=== PATIENT | female | born 1980 | race Caucasian/White ===

== ENCOUNTER 2016-08-13 05:11 | Inpatient (IN) | payer BC ==
[2016-08-13] MEDS ORDERED: Lidocaine 1% 50 ML MDV ONE (05:32)
[2016-08-13] MEDS ORDERED: Naloxone 0.4 MG/ML SDV ONE (05:32)
[2016-08-13] MEDS ORDERED: Oxytocin 10 Units/1 ML SDV ONE (05:32)
[2016-08-13] MEDS ORDERED: fentaNYL 100 MCG/2 ML SDV IVPUSH PRN (05:40)
[2016-08-13] MEDS ORDERED: Acetaminophen 325 MG Tab PO PRN (05:40)
[2016-08-13] MEDS ORDERED: Sodium Chloride 0.9% 10 ML Syringe FLUSH PRN (05:40)
--- NOTE | 2016-08-13 05:50 | PCM.LDHP ---
L&D History of Present Illness - General Date of Service: 08/13/16 (labor) Admit Problem/Dx: Patient Status Order with Admit Dx/Problem 08/13/16 05:40 Patient Status [ADT] Routine Admission Diagnosis/Problem Admission Diagnosis/Problem Source of Information: Patient History Limitations: Reports: No limitations - History of Present Illness Introduction:: 35 year old G 5 P2 who is 40 weeks gestation today presented inactive active at 0530. Contractions started at 0130 this morning. Have gotten stronger over the night. No leaking of fluid. adequate care. Healthy lady CE 6-7/100/0 LABs: ABO O pos HIV neg GBS pos HGB 14.2 and PLT 175 Timing/Duration: Reports: minutes: (2-3 minutes) Location, : Reports: Lower back Quality: Reports: Ache, Pressure Severity: moderate Improves with: Reports: Movement, Other (pressure on her low back) Worsens with: Reports: Other (being on her back) - Related Data Allergies/Adverse Reactions: Allergies Allergy/AdvReac Type Severity Reaction Status Date / Time Sulfa (Sulfonamide Allergy Rash Verified 01/14/14 10:21 Antibiotics) Home Medications: Home Meds [id number]/Iron Fumarate/FA/DSS [ 19 Tablet] 1 each PO ASDIRECTED 01/14/14 [ History] Past Medical History : 5 Para: 2 LMP (Approximate): (COURTNEY 08/13/16) Other OB/BYN History: miscarriage Social & Family History - Tobacco Use Smoking Status *Q: Never Smoker Second Hand Smoke Exposure: No - Alcohol Use Days Per Week of Alcohol Use: 0 - Recreational Drug Use Recreational Drug Use: No H&P Review of Systems - Review of Systems: Review Of Systems: See Below General: Reports: no symptoms HEENT: Reports: no symptoms Pulmonary: Reports: No Symptoms Cardiovascular: Reports: no symptoms Gastrointestinal: Reports: No symptoms Genitourinary: Reports: no symptoms Musculoskeletal: Reports: no symptoms Skin: Reports: no symptoms Psychiatric: Reports: no symptoms Neurological: Reports: No Symptoms Hematologic/Lymphatic: Reports: no symptoms Immunologic: Reports: no symptoms L&D Exam - Exam Exam: See Below - Vital Signs Weight: 188 lb - OB Specific Contraction Intensity: Strong movement: active heart tones: present heart tones per min: 140 Presentation: Vertex Estimated Weight: 8 pounds - Collins Score Collins Score Cervix Position: Midposition Collins Score Consistency: Soft Collins Score Effacement: >80% Collins Score Dilation: > 5 cm Collins Score 's Station: -1 ,0 Collins Score Total: 11 - Exam General: alert, oriented HEENT: PERRLA, Conjunctiva clear, Hearing intact, Mucosa moist & pink Neck: supple, trachea midline Lungs: Clear to auscultation Cardiovascular: regular rate, regular rhythm Abdomen: normal bowel sounds, soft Rectal Exam: Normal exam Genitourinary: Normal external exam Back Exam: normal inspection, full range of motion Extremities: normal inspection Skin: warm, dry, intact Neurological: cranial nerves intact, reflexes equal bilateral Psychiatric: alert, normal affect, normal mood - Patient Data Lab Results last 24 hrs: Laboratory Results - last 24 hr 08/13/16 Range/Units 05:38 WBC 9.8 (4.5-11.0) K/uL RBC 4.41 (3.30-5.50) M/uL Hgb 14.2 (12.0-15.0) g/dL Hct 40.0 (36.0-48.0) % MCV 91 (80-98) fL MCH 32 H (27-31) pg MCHC 36 (32-36) % Plt Count 175 (150-400) K/uL Neut % (Auto) 54 (36-66) % Lymph % (Auto) 37 (24-44) % [place] % (Auto) 9 H (2-6) % Eos % (Auto) 1 L (2-4) % Baso % (Auto) 1 (0-1) % Result Diagrams: 08/13/16 05:38 - Problem List (1) SNOMED Code(s): 57013015 ICD Code: Z33.1 - STATE, INCIDENTAL Status: Acute Current Visit : Yes Qualifiers: Weeks of gestation: 40 weeks Qualified Code(s): Z3A.40 - 40 weeks gestation of (2) Active labor SNOMED Code(s): 90996468 ICD Code: [id number] - Status: Acute Current Visit: Yes Problem List Initiated/Reviewed/Updated: Yes Orders Last 24hrs: Active Orders 24 hr Category Date Time Status Patient Status [ADT] Routine ADT 08/13/16 05:40 Ordered Communication Order [RC] ASDIRECTED Care 08/13/16 05:40 Ordered Heart Tones [RC] PER UNIT ROUTINE Care 08/13/16 05:40 Ordered May Shower [RC] ASDIRECTED Care 08/13/16 05:40 Ordered Notify Provider Vital Signs [RC] PRN Care 08/13/16 05:40 Ordered Notify Provider [RC] PRN Care 08/13/16 05:40 Ordered Up ad Jolene [RC] ASDIRECTED Care 08/13/16 05:40 Ordered Vital Signs [RC] PER UNIT ROUTINE Care 08/13/16 05:40 Ordered DRUG SCREEN, URINE [URCHEM] Urgent Lab 08/13/16 05:38 Ordered UA W/MICROSCOPIC [URIN] Routine Lab 08/13/16 05:38 Ordered Acetaminophen [Tylenol] Med 08/13/16 05:40 Ordered 650 mg PO Q4H PRN Oxytocin/Normal Saline [Pitocin in NS 20 Units/1,000 ML Med 08/13/16 05:45 Ordered ] 1,000 ml IV TITRATE Sodium Chloride 0.9% [Saline Flush] Med 08/13/16 05:40 Ordered 10 ml FLUSH ASDIRECTED PRN fentaNYL [Sublimaze] Med 08/13/16 05:40 Ordered 100 mcg IVPUSH Q1H PRN Saline Lock Insert [OM.PC] Routine Oth 08/13/16 05:40 Ordered Resuscitation Status Routine Resus Stat 08/13/16 05:40 Ordered Medication Orders Acetaminophen (Tylenol) 650 mg PO Q4H PRN PRN Reason: Pain (Mild 1-3) and fever Fentanyl (Sublimaze) 100 mcg IVPUSH Q1H PRN PRN Reason: Pain (moderate 4-6) Sodium Chloride (Saline Flush) 10 ml FLUSH ASDIRECTED PRN PRN Reason: Keep Vein Open Assessment/Plan Comment:: 35 year old in active labor at 40 weeks gestation. GBS negative Plan for vaginal delivery pain medication per patient request
[2016-08-13] MEDS ORDERED: Benzocaine 20% Top Spray 56 GM Bottle TOP PRN (06:56)
[2016-08-13] MEDS ORDERED: Witch Hazel Medicated Pads 100/Jar TOP PRN (06:56)
[2016-08-13] MEDS ORDERED: Acetaminophen 325 MG Tab, 50 Tab Bulk Bottle PO PRN (06:56)
[2016-08-13] MEDS ORDERED: Ibuprofen 600 MG Tab PO PRN (06:56)
[2016-08-13] MEDS ORDERED: Lanolin 100% Cream 40 GM Tube TOP PRN (06:56)
[2016-08-13] MEDS ORDERED: Ibuprofen 200 MG Tab, 24 Tab Bulk Bottle PO PRN (06:56)
--- NOTE | 2016-08-13 07:12 | PCM.DEL ---
L & D Note - General Info Date of Service: 08/13/16 () Mother's Due Date: 08/13/16 - Delivery Note Labor: spontaneous Delivery Outcome: Livebirth Delivery Method: Spontaneous Vaginal Delivery Delivery Mode: Spontaneous Presentation: Vertex Nuchal cord: none Anesthesia Type: None Anesthetic: lidocaine (xylocaine) 1% plain Local anesthetic volume: 3cc Amniotic Fluid Description: Clear Episiotomy Type: None Laceration: 1st degree, perineal Suture type: vicryl Suture size: 3-0 Placenta: intact, spontaneous Cord: 3 vessels Estimated blood loss: 400 Resuscitation needed: No : stimulated, warmed, blanket used Provider: Lela Doherty Score 1 min: 9 Score 5 min: 9 Score 10 min: 9 Second Stage Interventions: Reports: Encouragement Given, Pushing Effectively, Pushing, McRobert's Position Delivery Comments (Free Text/Narrative):: This 35 year old G5 now P3 delivered a viable male infant over an intact perineum at 0620. Giulia presented at 0530 in active labor she progressed and was complete with a bulging bag at o6oo. AROM at 0600 for large amount clear fluid. She pushed effectively and ant 0620 babe was born. He was placed on mother's abdomen where he was dried and stimulated. He cried spontaneously. 9,9, 9. Three vessel cord. The placenta was expressed spontaneously intact. She had a small midline perineal tear which required 3 stitches to close. Intact cervix, vagina, rectum. EBL 400cc Mother and baby to post and nursery in stable condition Weight 9-15.4 first stage [id number] Second stage 3963-2476 Third stage [id number] - General Info Date of Service: 08/13/16 Admission Dx/Problem (Free Text): Patient Status Order with Admit Dx/Problem 08/13/16 05:40 Patient Status [ADT] Routine Admission Diagnosis/Problem Admission Diagnosis/Problem Functional Status: Reports: pain controlled - Review of Systems General: Reports: No Symptoms HEENT: Reports: no symptoms Pulmonary: Reports: no symptoms Cardiovascular: Reports: No Symptoms Gastrointestinal: Reports: No symptoms Genitourinary: Reports: no symptoms Musculoskeletal: Reports: no symptoms Skin: Reports: no symptoms Neurological: Reports: No Symptoms Psychiatric: Reports: no symptoms - Patient Data Vitals - most recent: Last Vital Signs Temp Pulse 94 08/13/16 06:52 Resp 18 08/13/16 06:52 BP Pulse Ox 94 L 08/13/16 06:52 Weight - most recent: 188 lb Lab Results last 24 hrs: Laboratory Results - last 24 hr 08/13/16 08/13/16 08/13/16 Range/Units 05:38 05:41 05:41 WBC 9.8 (4.5-11.0) K/uL RBC 4.41 (3.30-5.50) M/uL Hgb 14.2 (12.0-15.0) g/dL Hct 40.0 (36.0-48.0) % MCV 91 (80-98) fL MCH 32 H (27-31) pg MCHC 36 (32-36) % Plt Count 175 (150-400) K/uL Neut % (Auto) 54 (36-66) % Lymph % (Auto) 37 (24-44) % [place] % (Auto) 9 H (2-6) % Eos % (Auto) 1 L (2-4) % Baso % (Auto) 1 (0-1) % Urine Color Yellow Urine Appearance Slightly cloudy Urine pH 5.0 (4.5-8.0) Ur Specific [place] 1.020 (1.008-1.030) Urine Protein Negative (NEGATIVE) mg/dL Urine Glucose (UA) Normal (NEGATIVE) mg/dL Urine Ketones Negative (NEGATIVE) mg/dL Urine Occult Blood Large (NEGATIVE) Urine Nitrite Negative (NEGATIVE) Urine Bilirubin Small (NEGATIVE) Urine Urobilinogen Normal (NORMAL) mg/dL Ur Leukocyte Esterase Small (NEGATIVE) Urine RBC 20-30 H (0-5) Urine WBC 10-20 H (0-5) Ur Epithelial Cells Many Amorphous Sediment Not seen Urine Bacteria Rare Urine Mucus Not seen Urine Opiates Screen Negative (NEGATIVE) Ur Oxycodone Screen Negative (NEGATIVE) Urine Methadone Screen Negative (NEGATIVE) Ur Propoxyphene Screen Negative (NEGATIVE) Ur Barbiturates Screen Negative (NEGATIVE) Ur Tricyclics Screen Negative (NEGATIVE) Ur Phencyclidine Scrn Negative (NEGATIVE) Ur Amphetamine Screen Negative (NEGATIVE) U Methamphetamines Scrn Negative (NEGATIVE) Urine MDMA Screen Negative (NEGATIVE) U Benzodiazepines Scrn Negative (NEGATIVE) U Cocaine Metab Screen Negative (NEGATIVE) U Marijuana (THC) Screen Negative (NEGATIVE) Med Orders - Current: Current Medications Acetaminophen (Tylenol) 650 mg PO Q4H PRN PRN Reason: Pain (Mild 1-3) and fever Acetaminophen (Tylenol Bulk Bottle) 325 mg PO Q4H PRN PRN Reason: Pain Benzocaine (Egfx-V-Vyklwux 20% [place]) 0 gm TOP Q4H PRN PRN Reason: Perineal Comfort Measure Emollient Ointment (Lansinoh Hpa) 1 gm TOP ASDIRECTED PRN PRN Reason: Sore Nipples Fentanyl (Sublimaze) 100 mcg IVPUSH Q1H PRN PRN Reason: Pain (moderate 4-6) Oxytocin/Sodium Chloride (Pitocin In Ns 20 Units/1,000 Ml) 20 unit in 1,000 mls @ 6 mls/hr IV TITRATE SAMMIE; 2 MUNITS/MIN PRN Reason: Protocol Last Admin: 08/13/16 06:36 Dose: 2 munits/min, 6 mls/hr Ibuprofen (Motrin Bulk Bottle) 600 mg PO Q6H PRN PRN Reason: Pain Ibuprofen (Motrin) 600 mg PO Q6H PRN PRN Reason: mild pain or fever Sodium Chloride (Saline Flush) 10 ml FLUSH ASDIRECTED PRN PRN Reason: Keep Vein Open Nika Junior (Tucks) 1 pad TOP ASDIRECTED PRN PRN Reason: Hemorrhoids Discontinued Medications Oxytocin/Sodium Chloride (Pitocin In Ns 20 Units/1,000 Ml) Confirm Administered Dose 20 unit in 1,000 mls @ as directed .ROUTE .STK-MED ONE Stop: 08/13/16 06:28 Last Admin: 08/13/16 06:31 Dose: Not Given Lidocaine HCl (Xylocaine 1%) Confirm Administered Dose 100 ml .ROUTE .STK-MED ONE Stop: 08/13/16 05:33 Last Admin: 08/13/16 06:28 Dose: 50 ml Naloxone HCl (Narcan) Confirm Administered Dose 0.4 mg .ROUTE .STK-MED ONE Stop: 08/13/16 05:33 Last Admin: 08/13/16 06:36 Dose: Not Given Oxytocin (Pitocin) Confirm Administered Dose 10 unit .ROUTE .STK-MED ONE Stop: 08/13/16 05:33 Last Admin: 08/13/16 06:22 Dose: 10 unit - Exam General: alert, oriented HEENT: Pupils equal, Pupils reactive, EOMI, Mucous membr. moist/pink Neck: supple Lungs: Clear to auscultation, Normal respiratory effort Cardiovascular: Regular Rate, Regular Rhythm Abdomen: bowel sounds present, soft, no tenderness, no distension (Female) Exam: Normal external exam, Normal speculum exam, Normal bimanual exam, Enlarged uterus, Vaginal bleeding Back Exam: normal inspection, full range of motion Extremities: no edema Skin: warm, dry, intact Wound/Incisions: healing well Neurological: no new focal deficit Psy/Mental Status: alert, normal affect, normal mood - Problem List & Annotations (1) SNOMED Code(s): 89373666 Code(s): Z33.1 - STATE, INCIDENTAL Status: Acute Current Visit: Yes Qualifiers: Weeks of gestation: 40 weeks Qualified Code(s): Z3A.40 - 40 weeks gestation of (2) Active labor SNOMED Code(s): 11302245 Code(s): ZFD6522 - Status: Acute Current Visit: Yes - Problem List Review Problem List Initiated/Reviewed/Updated: Yes - My Orders Last 24 Hours: My Active Orders 08/13/16 05:40 Communication Order [RC] ASDIRECTED Heart Tones [RC] PER UNIT ROUTINE May Shower [RC] ASDIRECTED Notify Provider Vital Signs [RC] PRN Notify Provider [RC] PRN Up ad Jolene [RC] ASDIRECTED Vital Signs [RC] PER UNIT ROUTINE Acetaminophen [Tylenol] 650 mg PO Q4H PRN Sodium Chloride 0.9% [Saline Flush] 10 ml FLUSH ASDIRECTED PRN fentaNYL [Sublimaze] 100 mcg IVPUSH Q1H PRN Saline Lock Insert [OM.PC] Routine Resuscitation Status Routine 08/13/16 05:45 Oxytocin/Normal Saline [Pitocin in NS 20 Units/1,000 ML] 20 unit in 1,000 ml IV TITRATE 08/13/16 05:47 OB Check [OM.PC] Click to Edit 08/13/16 06:56 Patient Status [ADT] Routine Vital Signs [RC] PFP Acetaminophen [Tylenol Bulk Bottle] 325 mg PO Q4H PRN Benzocaine [Lars-S-Lqibxbz 20% [place]] See Dose Instructions TOP Q4H PRN Ibuprofen [Motrin Bulk Bottle] 600 mg PO Q6H PRN Ibuprofen [Motrin] 600 mg PO Q6H PRN Lanolin [Lansinoh HPA] 1 gm TOP ASDIRECTED PRN Witch Sandi [Tucks] 1 pad TOP ASDIRECTED PRN Assess Lochia [WOMSER] Per Unit Routine Assess Uterine Involution [WOMSER] Per Unit Routine DVT/VTE Prophylaxis Reflex [OM.PC] Routine 08/13/16 06:57 Ice Therapy [OM.PC] Per Unit Routine Perineal Care [OM.PC] Per Unit Routine Peripheral IV Discontinue [OM.PC] Routine Sitz Bath [OM.PC] Per Unit Routine 08/13/16 06:58 Antiembolic Devices [RC] .Routine VTE/DVT Education [RC] Click to Edit 08/13/16 Breakfast Regular Diet [DIET] 08/14/16 05:11 CBC WITH AUTO DIFF [HEME] AM - Assessment Assessment:: 35 year old , who is 40 weeks without complications small perineal tear - Plan Plan:: 35 year old in active labor at 40 weeks gestation. GBS negative Plan for vaginal delivery pain medication per patient request 08/13/16 Routine cares Support 24-48 hour stay
[2016-08-13] MEDS: Docusate Sodium 100 MG Cap PO PRN (17:32)
[2016-08-14] MEDS: Docusate Sodium 100 MG Cap PO PRN (02:36)
--- NOTE | 2016-08-14 13:10 | PCM.PNPP ---
- General Info Date of Service: 08/14/16 (PPD 1 D/C) Admission Dx/Problem (Free Text): Patient Status Order with Admit Dx/Problem 08/13/16 05:40 Patient Status [ADT] Routine Admission Diagnosis/Problem Admission Diagnosis/Problem Functional Status: Reports: pain controlled - Review of Systems General: Reports: No Symptoms HEENT: Reports: no symptoms Pulmonary: Reports: no symptoms Cardiovascular: Reports: No Symptoms Gastrointestinal: Reports: No symptoms Genitourinary: Reports: no symptoms Musculoskeletal: Reports: no symptoms Skin: Reports: no symptoms Neurological: Reports: No Symptoms Psychiatric: Reports: no symptoms - General Info Date of Service: 08/14/16 - Patient Data Vital Signs - most recent: Last Vital Signs Temp 97.7 F 08/14/16 07:30 Pulse 63 08/14/16 07:30 Resp 18 08/14/16 07:30 BP 123/70 08/14/16 07:30 Pulse Ox 99 08/14/16 07:30 Weight - most recent: 188 lb I&O - last 24 hours: Intake & Output 08/13/16 08/14/16 08/14/16 22:59 06:59 14:59 Intake Total 500 240 Balance 500 240 Lab Results - last 24 hrs: Laboratory Results - last 24 hr 08/14/16 Range/Units 05:11 WBC 8.0 (4.5-11.0) K/uL RBC 3.66 (3.30-5.50) M/uL Hgb 11.4 L D (12.0-15.0) g/dL Hct 33.9 L (36.0-48.0) % MCV 93 (80-98) fL MCH 31 (27-31) pg MCHC 34 (32-36) % Plt Count 142 L (150-400) K/uL Neut % (Auto) 62 (36-66) % Lymph % (Auto) 29 (24-44) % [place] % (Auto) 8 H (2-6) % Eos % (Auto) 1 L (2-4) % Baso % (Auto) 1 (0-1) % Med Orders - Current: Current Medications Acetaminophen (Tylenol) 650 mg PO Q4H PRN PRN Reason: Pain (Mild 1-3) and fever Last Admin: 08/13/16 07:59 Dose: 650 mg Acetaminophen (Tylenol Bulk Bottle) 325 - 650 mg PO Q4H PRN PRN Reason: Pain Benzocaine (Siav-B-Djsfbrz 20% [place]) 0 gm TOP Q4H PRN PRN Reason: Perineal Comfort Measure Last Admin: 08/13/16 07:59 Dose: 56 gm Docusate Sodium (Colace) 100 mg PO BID PRN PRN Reason: Constipation Last Admin: 08/14/16 02:36 Dose: 100 mg Emollient Ointment (Lansinoh Hpa) 0 gm TOP ASDIRECTED PRN PRN Reason: Sore Nipples Fentanyl (Sublimaze) 100 mcg IVPUSH Q1H PRN PRN Reason: Pain (moderate 4-6) Oxytocin/Sodium Chloride (Pitocin In Ns 20 Units/1,000 Ml) 20 unit in 1,000 mls @ 6 mls/hr IV TITRATE SAMMIE; 2 MUNITS/MIN PRN Reason: Protocol Last Titration: 08/13/16 07:03 Dose: 125 mls/hr Ibuprofen (Motrin Bulk Bottle) 600 mg PO Q6H PRN PRN Reason: Pain Last Admin: 08/13/16 08:06 Dose: 1 bottle Ibuprofen (Motrin) 600 mg PO Q6H PRN PRN Reason: mild pain or fever Sodium Chloride (Saline Flush) 10 ml FLUSH ASDIRECTED PRN PRN Reason: Keep Vein Open Witch Sandi (Tucks) 1 pad TOP ASDIRECTED PRN PRN Reason: Hemorrhoids Discontinued Medications Oxytocin/Sodium Chloride (Pitocin In Ns 20 Units/1,000 Ml) Confirm Administered Dose 20 unit in 1,000 mls @ as directed .ROUTE .STK-MED ONE Stop: 08/13/16 06:28 Last Admin: 08/13/16 06:31 Dose: Not Given Lidocaine HCl (Xylocaine 1%) Confirm Administered Dose 100 ml .ROUTE .STK-MED ONE Stop: 08/13/16 05:33 Last Admin: 08/13/16 06:28 Dose: 50 ml Naloxone HCl (Narcan) Confirm Administered Dose 0.4 mg .ROUTE .STK-MED ONE Stop: 08/13/16 05:33 Last Admin: 08/13/16 06:36 Dose: Not Given Oxytocin (Pitocin) Confirm Administered Dose 10 unit .ROUTE .STK-MED ONE Stop: 08/13/16 05:33 Last Admin: 08/13/16 06:22 Dose: 10 unit - Interaction Infant Disposition, : [place] in Room with Family Infant Interaction: Holding Infant Feeding: Breastfed Infant; Nursed Well Support Person: - Recovery Exam Fundal Tone: Firm Fundal Level: 1 Fingerbreadths Above Umbilicus Fundal Placement: Midline Lochia Amount: Small Lochia Color: Rubra/Red Perineum Description: Intact, Minimal Bruising/Swelling Episiotomy/Laceration: Approximated Bladder Status: Voiding Urinary Elimination: Voided - Exam General: alert, oriented HEENT: Pupils equal Neck: supple Lungs: Clear to auscultation, Normal respiratory effort Cardiovascular: Regular Rate, Regular Rhythm Abdomen: bowel sounds present, soft, no tenderness, no distension Extremities: no edema Skin: warm, dry, intact Wound/Incisions: healing well Neurological: no new focal deficit Psy/Mental Status: alert, normal affect, normal mood - Problem List & Annotations (1) SNOMED Code(s): 76753896 Code(s): Z33.1 - STATE, INCIDENTAL Status: Acute Current Visit: Yes Qualifiers: Weeks of gestation: 40 weeks Qualified Code(s): Z3A.40 - 40 weeks gestation of (2) Active labor SNOMED Code(s): 89837698 Code(s): DBI6929 - Status: Acute Current Visit: Yes (3) Normal delivery SNOMED Code(s): 586306757 Code(s): O80 - ENCOUNTER FOR FULL-TERM UNCOMPLICATED DELIVERY; Z37.0 - SINGLE LIVE Status: Acute Current Visit: Yes - Problem List Review Problem List Initiated/Reviewed/Updated: Yes - My Orders Last 24 Hours: My Active Orders 08/13/16 14:14 Docusate Sodium [Colace] 100 mg PO BID PRN - Assessment Assessment:: 35 year old , who is 40 weeks without complications small perineal tear 08/14/16 without complications, doing well , without problems want to go home - Plan Plan:: 35 year old in active labor at 40 weeks gestation. GBS negative Plan for vaginal delivery pain medication per patient request 08/13/16 Routine cares Support 24-48 hour stay HOme today see me in 6 weeks for a post visit
[2016-08-14 15:10] VITALS: BP 108/66
== END 2016-08-14 17:17 | disposition home or self-care (01) | DRG 560 ==
LOC: JP.OBCHECK 05:11 → JP.OB 05:34 → OBSVTOIN 06:20 → JP.MS 07:56
PROVIDERS: ADMIT Nurse Practitioner Family; ATTEND Nurse Practitioner Family
PROC: 10E0XZZ Delivery of Products of Conception, External Approach (ICD-10-PCS; principal; 2016-08-13)
PROC: 10907ZC Drainage of Amniotic Fluid, Therapeutic from Products of Conception, Via Natural or Artificial Opening (ICD-10-PCS; principal; 2016-08-13)
PROC: 0HQ9XZZ Repair Perineum Skin, External Approach (ICD-10-PCS; principal; 2016-08-13)
DX: O70.9 Perineal laceration during delivery, unspecified (principal); O36.60X0 Maternal care for excessive fetal growth, unspecified trimester, not applicable or unspecified; Z3A.40 40 weeks gestation of pregnancy; Z37.0 Single live birth; Z88.2 Allergy status to sulfonamides
CPT/HCPCS: 36415; 80305; 81001; 85025; A9270-GY; J2590

== ENCOUNTER 2023-05-17 18:47 | Emergency (ER) | payer OTHER ==
[2023-05-17 19:35] LABS: BASOPHILS ABSOLUTE AUTO 0.09 K/uL (0.00-0.10); EOSINOPHILS ABSOLUTE AUTO 0.06 K/uL (0.00-0.40); EOSINOPHILS PERCENT AUTO 1.4 % (0.0-5.4); HEMATOCRIT 40.1 % (34.3-46.0); HEMOGLOBIN 13.7 g/dL (11.2-15.5); LYMPHOCYTES ABSOLUTE AUTO 1.61 K/uL (0.8-3.3); LYMPHOCYTES PERCENT AUTO 36.4 % (11.4-47.7); MEAN CORPUSCULAR HEMOGLOBIN 31.1 pg (31.6-35.5); MEAN CORPUSCULAR HGB CONC 34.2 g/dL (31.6-35.5); MEAN CORPUSCULAR VOLUME 90.9 fL (81.4-99.0); MONOCYTES PERCENT AUTO 15.8 % (3.3-12.6); NEUTROPHILS ABSOLUTE AUTO 1.96 K/uL (1.0-7.6); NEUTROPHILS PERCENT AUTO 44.4 % (40.0-78.1); PLATELET COUNT,PLT 198 K/uL (130-375); RED BLOOD CELL COUNT 4.41 M/uL (3.77-5.24); WHITE BLOOD CELL COUNT,WBC 4.4 K/uL (3.2-11.0)
[2023-05-17 19:58] LABS: BLOOD UREA NITROGEN,BUN 14 mg/dL (7-18); CALCIUM 8.1 mg/dL (8.5-10.1); CARBON DIOXIDE,CO2 29 mmol/L (21-32); CHLORIDE,CL 104 mmol/L (100-108); CREATININE 0.9 mg/dL (0.6-1.0); ESTIMATED GFR 82 mL/min (>60); GLUCOSE RANDOM 82 mg/dL (74-106); POTASSIUM,K 3.8 mmol/L (3.6-5.2); SODIUM,NA 138 mmol/L (140-148); TROPONIN I HIGH SENSITIVITY 4.5 pg/mL (<=60.3)
[2023-05-17 19:59] LABS: ANION GAP 8.8 mmol/L (5.0-14.0)
[2023-05-17 20:47] VITALS: BP 119/73; PULSE 55
== END 2023-05-17 21:24 | disposition home or self-care (01) ==
LOC: JP.ED 18:47
DX: R07.89 Other chest pain (principal); Z88.2 Allergy status to sulfonamides
CPT/HCPCS: 36415; 71046; 71046-26; 80048; 84484; 85025; 93005; 99285